=== PATIENT | female | born 1980 | race Caucasian/White ===

== ENCOUNTER → 2016-12-01 | Outpatient (CLI) | payer OTHER ==
[2015-05-28 18:37] VITALS: BP 128/73
[~2016-12-01] MED LIST: IBUP200T43 PO; OMEP20CA9 PO
--- NOTE | 2016-12-01 09:46 | RAD ---
Left knee, 3 views, 12/01/2016: History: Knee pain and swelling No fracture or dislocation is identified. There is only minimal marginal spurring at the knee joint. No joint effusion is seen. IMPRESSION: No acute left knee abnormality is detected.
== END | disposition home or self-care (01) ==
LOC: DXRADRC 07:54
PROVIDERS: ATTEND Family Medicine
DX: M25.462 Effusion, left knee (principal)
CPT/HCPCS: 73562

== ENCOUNTER → 2018-12-11 | Outpatient (CLI) | payer OTHER ==
[2015-05-28 18:37] VITALS: BP 128/73
[~2018-12-11] MED LIST changes: -IBUP200T43 PO; +IBUP200T44 PO; +OMEP20CA10 PO; -OMEP20CA9 PO
--- NOTE | 2018-12-11 17:43 | RAD ---
Examination: HIP LEFT 2V WITH PELVIS History: Hip pain Comparison/Correlation: None Findings: Frontal view of the pelvis, frontal view left hip, and frog-leg lateral view of the left hip were obtained. Sacroiliac and hip joints are symmetric. No fracture or bony destruction. Soft tissues are unremarkable. Hip joint spaces are adequate. Mild sacroiliac joint sclerosis bilaterally noted. No significant narrowing suggested. Impression: No acute process. No significant degenerative change. Electronically signed by: Lui Sauceda MD (12/11/2018 5:40 PM) [facility]
== END | disposition home or self-care (01) ==
LOC: DXRAD 14:32
PROVIDERS: ATTEND Physician Assistant Medical
DX: M53.3 Sacrococcygeal disorders, not elsewhere classified (principal)
CPT/HCPCS: 73502

== ENCOUNTER → 2019-01-25 | Outpatient (CLI) | payer OTHER ==
[2015-05-28 18:37] VITALS: BP 128/73
--- NOTE | 2019-01-25 10:28 | RAD ---
Chest, PA and Lateral: Technique: PA and lateral views of the chest were obtained. History: Cough. Comparison: 02/19/2013. Findings: The cardiomediastinal silhouette grossly appears unremarkable. Minimal prominent appearing bilateral interstitial lung markings probably mild bronchitis. IMPRESSION: 1. Minimal prominent bilateral interstitial lung markings probably mild bronchitis. Electronically signed by: Brian Frias MD (01/25/2019 10:25 AM) [facility]
== END | disposition home or self-care (01) ==
LOC: PMG 08:19
PROVIDERS: ATTEND Physician Assistant
DX: R05 Cough (principal)
CPT/HCPCS: 71046

== ENCOUNTER 2019-03-03 21:00 | Emergency (ER) | payer OTHER ==
[~2019-03-03] VITALS: Ht 167.6 cm; Wt 127.0 kg
--- NOTE | 2019-03-03 21:04 | ED.ADGEN ---
Past History Past Medical History: No Pertinent History, Diabetes, GERD, Other Past Surgical History: Tubal ligation, Other Smoking: Cigarettes Alcohol Use: None Drug Use: None Adult General Chief Complaint Chief Complaint ".. I ve been nauseated... some back pain...ache all over.. headache...".. " It started this morning... My sugar was up 235.. or so.. and I just got to feeling worse all day long... " HPI HPI Patient is a 38 year old FEMALE who presents with above hx and complaints nausea, vomiting, dysuria, fever, chills, and hyperglycemia. Patient denies any travel or specific ill contacts. Patient recently diagnosed with diabetes a known history of hypertension. Patient follows with [facility]. No history of travel. No history of trauma. Review of Systems Review of Systems Constitutional: History of fever or chills [] Eyes: Denies change in visual acuity, redness, or eye pain [] HENT: Denies nasal congestion or sore throat [] Respiratory: Denies cough or shortness of breath [] Cardiovascular: No additional information not addressed in HPI [] GI: History of abdominal pain, nausea, vomiting,/. Denies bloody stools or diarrhea [] : History of dysuria or hematuria [] Musculoskeletal: Denies back pain or joint pain [] Integument: Denies rash or skin lesions [] Neurologic: Denies headache, focal weakness or sensory changes [] Endocrine: Denies polyuria or polydipsia [] All other systems were reviewed and found to be within normal limits, except as documented in this note. Family History Family History Abuse and hypertension Current Medications Current Medications Current Medications Medications (Trade) Dose Ordered Sig/Tiffanie Start Time Stop Time Status Last Admin Dose Admin Ceftriaxone Sodium 1 gm/ Sodium Chloride 50 ml @ 100 mls/hr 1X ONCE 03/03/19 23:15 03/04/19 00:30 DC 03/03/19 23:14 100 MLS/HR Ceftriaxone Sodium (Rocephin) 1 gm STK-MED ONCE 03/03/19 23:09 03/03/19 23:09 DC Lactated Ringer's 1,000 ml @ 1,000 mls/hr Q1H 03/03/19 21:30 03/03/19 22:29 DC 03/03/19 22:11 1,000 MLS/HR Levofloxacin (Levaquin) 500 mg 1X ONCE 03/03/19 23:45 03/04/19 00:30 DC 03/04/19 00:00 500 MG Magnesium Hydroxide (Milk Of Magnesia) 2,400 mg 1X ONCE 03/03/19 23:45 03/04/19 00:31 DC 03/04/19 00:00 2,400 MG Metronidazole 100 ml @ 100 mls/hr 1X ONCE 03/03/19 23:15 03/04/19 00:31 DC 03/03/19 23:14 100 MLS/HR Morphine Sulfate (Morphine 10mg Syringe) 10 mg 1X ONCE 03/03/19 23:15 03/04/19 00:31 DC 03/03/19 23:14 10 MG Ondansetron HCl (Zofran) 8 mg 1X ONCE 03/03/19 21:30 03/03/19 21:34 DC Sodium Chloride 50 ml @ As Directed STK-MED ONCE 03/03/19 23:09 03/03/19 23:09 DC Allergies Allergies Allergies Coded Allergies Type Severity Reaction Last Updated Verified codeine Adverse Reaction Intermediate DIZZY 04/05/14 Yes aspirin Adverse Reaction Mild NAUSEA 04/05/14 Yes Physical Exam Physical Exam Constitutional: in acute distress, non-toxic appearance. [] HENT: Normocephalic, atraumatic, bilateral external ears normal, oropharynx dry, no oral exudates, nose normal. [] Eyes: PERRLA, EOMI, conjunctiva normal, no discharge. [] Neck: Normal range of motion, no tenderness, supple, no stridor. [] Cardiovascular:tachycardia Heart rate regular rhythm, no murmur [] Lungs & Thorax: Bilateral breath sounds equal apexes with scattered wheezes on auscultation [] Abdomen: Bowel sounds decreased, soft, no tenderness, no masses, no pulsatile masses. Obesel Skin: Warm, diaphoretic, no erythema, no rash. [] Back: No tenderness, mild bilateral CVA tenderness. [] Extremities: No tenderness, no cyanosis, no clubbing, ROM intact, no edema. [] Neurologic: Alert and oriented X 3, normal motor function, normal sensory function, no focal deficits noted. [] Psychologic: Affect anxious, judgement normal, mood normal. [] Current Patient Data Vital Signs Vital Signs Date Time Temp Pulse Resp B/P (MAP) Pulse Ox O2 Delivery O2 Flow Rate FiO2 03/04/19 01:15 98.5 120 18 128/69 (88) 92 Room Air Lab Results Laboratory Tests Test 03/03/19 21:40 03/03/19 22:00 03/03/19 22:06 Urine Collection Type Unknown Urine Color Yellow Urine Clarity Cloudy Urine pH 7.0 Urine Specific [place] 1.015 Urine Protein 100 mg/dl (NEG-TRACE) Urine Glucose (UA) 100 mg/dL (NEG) Urine Ketones (Stick) Trace mg/dL (NEG) Urine Blood Large (NEG) Urine Nitrite Pos (NEG) Urine Bilirubin Neg (NEG) Urine Urobilinogen Dipstick 1 mg/dL (0.2 mg/dL) Urine Leukocyte Esterase Large (NEG) Urine RBC 20-40 /HPF (0-2) Urine WBC >40 /HPF (0-4) Urine Squamous Epithelial Cells Few /LPF Urine Bacteria Many /HPF (0-FEW) Urine Opiates Screen Neg (NEG) Urine Methadone Screen Neg (NEG) Urine Barbiturates Neg (NEG) Urine Phencyclidine Screen Neg (NEG) Urine Amphetamine/Methamphetamine Neg (NEG) Urine Benzodiazepines Screen Neg (NEG) Urine Cocaine Screen Neg (NEG) Urine Cannabinoids Screen Neg (NEG) Urine Ethyl Alcohol Neg (NEG) White Blood Count 10.5 x10^3/uL (4.0-11.0) Red Blood Count 4.39 x10^6/uL (3.50-5.40) Hemoglobin 12.8 g/dL (12.0-15.5) Hematocrit 38.4 % (36.0-47.0) Mean Corpuscular Volume 87 fL (79-100) Mean Corpuscular Hemoglobin 29 pg (25-35) Mean Corpuscular Hemoglobin Concent 33 g/dL (31-37) Red Cell Distribution Width 14.8 % (11.5-14.5) H Platelet Count 268 x10^3/uL (140-400) Neutrophils (%) (Auto) 87 % (31-73) H Lymphocytes (%) (Auto) 9 % (24-48) L Monocytes (%) (Auto) 4 % (0-9) Eosinophils (%) (Auto) 0 % (0-3) Basophils (%) (Auto) 0 % (0-3) Neutrophils # (Auto) 9.1 x10^3uL (1.8-7.7) H Lymphocytes # (Auto) 0.9 x10^3/uL (1.0-4.8) L Monocytes # (Auto) 0.4 x10^3/uL (0.0-1.1) Eosinophils # (Auto) 0.0 x10^3/uL (0.0-0.7) Basophils # (Auto) 0.0 x10^3/uL (0.0-0.2) Erythrocyte Sedimentation Rate 27 (0-25) H Prothrombin Time 10.4 SEC (9.4-11.4) Prothrombin Time INR 1.0 (0.9-1.1) Activated Partial Thromboplast Time 27 SEC (23-33) Sodium Level 136 mmol/L (136-145) Potassium Level 3.8 mmol/L (3.5-5.1) Chloride Level 99 mmol/L (98-107) Carbon Dioxide Level 25 mmol/L (21-32) Anion Gap 12 (6-14) Blood Urea Nitrogen 7 mg/dL (7-20) Creatinine 0.9 mg/dL (0.6-1.0) Estimated GFR (Cockcroft-Gault) 69.3 Glucose Level 199 mg/dL (70-99) H Calcium Level 9.3 mg/dL (8.5-10.1) Magnesium Level 1.4 mg/dL (1.8-2.4) L Total Bilirubin 0.6 mg/dL (0.2-1.0) Direct Bilirubin 0.4 mg/dL (0.0-0.2) H Aspartate Amino Transferase (AST) 101 U/L (15-37) H Alanine Aminotransferase (ALT) 54 U/L (14-59) Alkaline Phosphatase 166 U/L (46-116) H Creatine Kinase 32 U/L (26-192) Troponin I Quantitative < 0.017 ng/mL (0-0.055) CN-Ees-Y-Type Natriuretic Peptide 137 pg/mL (0-124) H Total Protein 6.6 g/dL (6.4-8.2) Albumin 3.5 g/dL (3.4-5.0) Lipase 82 U/L (73-393) POC Urine HCG, Qualitative hcg negative (Negative) EKG EKG My interpretation EKG shows a sinus tachycardia hent. 2 bpm. There is some anterior lateral strain pattern.[] Radiology/Procedures Radiology/Procedures [][place] [address] IMAGING REPORT Signed PATIENT: ROSA LIZ ACCOUNT: [id number] : 1980 LOCATION: ER AGE: 38 SEX: F EXAM STATUS: REG ER ORD. PHYSICIAN: VY COLBERT MD REASON: Nausea, vomiting and fever PROCEDURE: ACUTE ABDOMEN SERIES EXAM: ABDOMEN 2 VIEWS WITH PA CHEST History: Nausea, vomiting Comparison: None available FINDINGS: The cardiomediastinal silhouette grossly appears unremarkable. Mild bibasilar lung airspace opacity likely atelectasis or infiltrates. The bowel gas pattern appears unremarkable. Feces and gas noted in the colon. IMPRESSION: 1. Mild bibasilar lung airspace opacities likely atelectasis or infiltrates. 2. Unremarkable bowel gas pattern. Electronically signed by: Brian Frias MD (03/04/2019 12:28 AM) [id number] DICTATED AND SIGNED BY: BRIAN FRIAS MD DATE: 03/04/19 002 CC: VY COLBERT MD; RAI RIOS ~ Course & Med Decision Making Course & Med Decision Making Pertinent Labs and Imaging studies reviewed. (See chart for details) Patient declines admission at this time. A she push clear fluids. Avoid high glucose intake. Take Diabetic meds as directed. Follow with Dr. Rios. Take Levaquin 500 daily. Follow up cultures. Take zofran for nausea and vomiting. [] Final Impression Final Impression 1. Myalgia[] 2. Urinary tract infection-pyelonephritis 3. Diabetes- glucose 199 4. Hypo-magnesium 1.4 5. Elevated alkaline phosphatase 166 6. Dehydration Dragon Disclaimer Dragon Disclaimer This electronic medical record was generated, in whole or in part, using a voice recognition dictation system. Dragon Disclaimer This chart was dictated in whole or in part using Voice Recognition software in a busy, high-work load, and often noisy Emergency Department environment. It may contain unintended and wholly unrecognized errors or omissions. VY COLBERT MD Mar 03, 2019 21:04
[2019-03-03] MEDS ORDERED: IV RINGERS SOLUTION,LACTATED 1,000 ML IV SCH (21:30)
[2019-03-03] MEDS ORDERED: ONDANSETRON PF 4 MG/2 ML VIAL. IV ONE (21:30)
--- NOTE | 2019-03-03 21:57 | EKG ---
[address] [address] Test Date: 2019-03-03 Test Time: 21:54:15 Pat Name: ROSA LIZ Department: Room: Gender: F [employer] Liaison: : 1980 Requested By: VY COLBERT Order Number: [id number] Reading MD: Measurements Intervals [place] Rate: 132 P: 34 NM: 132 QRS: 8 QRSD: 88 T: 9 QT: 276 QTc: 412 Interpretive Statements SINUS TACHYCARDIA QRS(T) CONTOUR ABNORMALITY CONSIDER ANTEROLATERAL MYOCARDIAL DAMAGE POSSIBLY ABNORMAL ECG RI6.01 No previous ECG available for comparison
[2019-03-03 22:28] LABS: BILIRUBIN,URINE NEG (NEG); CLARITY,URINE CLOUDY; COLOR,URINE YELLOW; GLUCOSE,URINE 100 mg/dL (NEG)
[2019-03-03 22:29] LABS: BACTERIA,URINE MANY /HPF (0-FEW); NITRITE,URINE POS (NEG); RBC,URINE 20-40 /HPF (0-2); SQUAMOUS EPITHELIAL CELL,UR FEW /LPF; UROBILINOGEN,URINE 1 mg/dL (0.2 mg/dL); WBC,URINE >40 /HPF (0-4)
[2019-03-03 22:30] LABS: AMPHETAMINE/METHAMPHETAMINE NEG (NEG); BARBITURATES NEG (NEG); BENZODIAZEPINES NEG (NEG); CANNABINOIDS NEG (NEG); COCAINE NEG (NEG); METHADONE NEG (NEG); OPIATES NEG (NEG); PHENCYCLIDINE NEG (NEG)
[2019-03-03 22:31] LABS: BASO % 0 % (0-3); EOS % 0 % (0-3); HEMATOCRIT 38.4 % (36.0-47.0); HEMOGLOBIN 12.8 g/dL (12.0-15.5); LYMPH # 0.9 x10^3/uL (1.0-4.8); LYMPH % 9 % (24-48); MEAN CORPUSCULAR HEMOGLOBIN 29 pg (25-35); MEAN CORPUSCULAR HGB CONC 33 g/dL (31-37); MEAN CORPUSCULAR VOLUME 87 fL (79-100); MONO # 0.4 x10^3/uL (0.0-1.1); MONO % 4 % (0-9); NEUT # 9.1 x10^3uL (1.8-7.7); NEUT % 87 % (31-73); PLATELET COUNT 268 x10^3/uL (140-400); RED BLOOD COUNT 4.39 x10^6/uL (3.50-5.40); RED CELL DISTRIBUTION WIDTH 14.8 % (11.5-14.5); WHITE BLOOD COUNT 10.5 x10^3/uL (4.0-11.0)
[2019-03-03 22:51] LABS: ALBUMIN 3.5 g/dL (3.4-5.0); CALCIUM 9.3 mg/dL (8.5-10.1); CREATININE 0.9 mg/dL (0.6-1.0); DIRECT BILIRUBIN 0.4 mg/dL (0.0-0.2); GFR 69.3; MAGNESIUM 1.4 mg/dL (1.8-2.4); POTASSIUM 3.8 mmol/L (3.5-5.1); TOTAL BILIRUBIN 0.6 mg/dL (0.2-1.0); TOTAL PROTEIN 6.6 g/dL (6.4-8.2)
[2019-03-03] MEDS ORDERED: IV NORMAL SALINE 50ML 50 ML ONE (23:09)
[2019-03-03] MEDS ORDERED: cefTRIAXone SODIUM 1 GM VIAL ONE (23:09)
[2019-03-03] MEDS ORDERED: MORPHINE SULFATE 10 MG/ML SYRINGE. SQ ONE (23:15)
[2019-03-03] MEDS ORDERED: OXYC1TAB15 PO (23:44)
[2019-03-03] MEDS ORDERED: LEVO500T59 PO (23:44)
[2019-03-03] MEDS ORDERED: ONDA8TAB9 PO (23:44)
[2019-03-03] MEDS ORDERED: MAGNESIUM HYDROXIDE 2,400 MG/30 ML ORAL.SUSP. PO ONE (23:45)
[2019-03-03] MEDS ORDERED: levoFLOXacin 500 MG TABLET PO ONE (23:45)
--- NOTE | 2019-03-04 00:30 | RAD ---
EXAM: ABDOMEN 2 VIEWS WITH PA CHEST History: Nausea, vomiting Comparison: None available FINDINGS: The cardiomediastinal silhouette grossly appears unremarkable. Mild bibasilar lung airspace opacity likely atelectasis or infiltrates. The bowel gas pattern appears unremarkable. Feces and gas noted in the colon. IMPRESSION: 1. Mild bibasilar lung airspace opacities likely atelectasis or infiltrates. 2. Unremarkable bowel gas pattern. Electronically signed by: Brian Frias MD (03/04/2019 12:28 AM) [id number]
[2019-03-04 01:15] VITALS: BP 128/69
[2019-03-05] MEDS ORDERED: DULO60CA6 PO (16:17)
[2019-03-05] MEDS ORDERED: CYCL-331 PO (16:17)
[2019-03-05] MEDS ORDERED: METF500T16 PO (16:17)
[2019-03-05] MEDS ORDERED: NAPR-514 PO (16:17)
[2019-03-05] MEDS ORDERED: PANT40TA5 PO (16:17)
[2019-03-05] MEDS ORDERED: TRAZ-86 PO (16:17)
[2019-03-07] MEDS ORDERED: CEFD300C PO (13:23)
== END 2019-03-04 01:20 | disposition home or self-care (01) ==
LOC: ER 21:00
DX: N12 Tubulo-interstitial nephritis, not specified as acute or chronic (principal); E11.65 Type 2 diabetes mellitus with hyperglycemia; E83.42 Hypomagnesemia; R74.8 Abnormal levels of other serum enzymes; E86.0 Dehydration; F17.210 Nicotine dependence, cigarettes, uncomplicated; K21.9 Gastro-esophageal reflux disease without esophagitis; Z98.51 Tubal ligation status; Z88.5 Allergy status to narcotic agent; Z88.6 Allergy status to analgesic agent
CPT/HCPCS: 36415; 74022; 80048; 80076; 80307; 81001; 81025; 82550; 83690; 83735; 83880; 84443; 84484; 85025; 85610; 85651; 85730; 86705; 86709; 86803; 87040; 87086; 87205; 87340; 93005; 96361; 96365; 96368; 96372; 99285; J0696; J2270; J3490; J7120

== ENCOUNTER → 2020-08-14 | Outpatient (CLI) | payer OTHER ==
[2019-03-07 11:07] VITALS: BP 144/91
[~2020-08-14] MED LIST changes: +CEFD300C PO; +CYCL-331 PO; +DULO60CA6 PO; +LEVO500T59 PO; +METF500T16 PO; +NAPR-514 PO; -OMEP20CA10 PO; +OMEP20CA16 PO; +ONDA8TAB9 PO; +OXYC1TAB15 PO; +PANT40TA6 PO; +TRAZ-125 PO
--- NOTE | 2020-08-14 17:53 | RAD ---
Study: XR RT WRIST 3VIEWS Indication: Right wrist pain. Comparison: 05/15/2013 Findings: No acute fracture. Intercarpal alignment is maintained. Normal scapholunate interval. Mild/moderate triscaphe arthrosis. Impression: 1. No acute fracture or malalignment. 2. 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 Electronically signed by: LARS MARES MD (08/14/2020 5:51 PM) [facility]
== END ==
LOC: DXRAD 17:35
PROVIDERS: ATTEND Nurse Practitioner Family
DX: M25.531 Pain in right wrist (principal)
CPT/HCPCS: 73110

== ENCOUNTER → 2020-12-04 | Outpatient (CLI) | payer OTHER ==
[2019-03-07 11:07] VITALS: BP 144/91
--- NOTE | 2020-12-04 16:12 | RAD ---
EXAM: XR FINGER(S)_RIGHT 2+VIEWS 12/04/2020 12:30 PM CLINICAL INDICATION: First digit pain, no known injury COMPARISON: None TECHNIQUE: 3 views of the right thumb FINDINGS: There is a tiny calcification at the radial aspect of the thumb interphalangeal joint, non specific. No acute fracture. Alignment is normal. Joint spaces are maintained. Bone mineralization is normal. IMPRESSION: No acute osseous abnormality. Electronically signed by: Fela Hay MD (12/04/2020 4:09 PM) [id number]
== END ==
LOC: RAD 12:25
PROVIDERS: ATTEND Physician Assistant
DX: M25.841 Other specified joint disorders, right hand (principal)
CPT/HCPCS: 73140

== ENCOUNTER → 2020-12-16 | Outpatient (CLI) | payer OTHER ==
[2019-03-07 11:07] VITALS: BP 144/91
--- NOTE | 2020-12-16 16:38 | RAD ---
Exam: Chest with right RIBS 2 views INDICATION: Fall today, injured right side TECHNIQUE: Frontal view of the chest with frontal and oblique views of the right ribs Comparisons: None FINDINGS: The cardiomediastinal silhouette and pulmonary vessels are within normal limits. The lung and pleural spaces are clear. No displaced rib fractures. IMPRESSION: 1. No acute cardiopulmonary process. 2. No displaced rib fractures. Electronically signed by: Theresa Craig MD (12/16/2020 4:36 PM) [facility]
--- NOTE | 2020-12-16 16:43 | RAD ---
EXAM: 3 views right shoulder 3 views right elbow 2 views right wrist 2 views right hand AP pelvis, AP and lateral views right hip DATE: 12/16/2020 4:00 PM INDICATION: Reason: FELL TODAY INJURED RIGHT SIDE / Spl. Instructions: / History: . COMPARISON: No Prior FINDINGS: No acute fracture or dislocation of the right shoulder or right elbow. Right AC joint is congruent. H umeral head is not high riding. No right elbow joint effusion. Soft tissue swelling about the dorsal aspect of the right elbow. Subtle osseous lenin at the volar aspect of the distal radius at the radiocarpal joint suspicious for nondisplaced fracture or old injury. Soft tissue swelling about the volar aspect of the right wrist. No evidence for acute fracture or dislocation of the right hand. Small calcification at the palmar as pect of the right ring finger PIP joint likely calcific periarthritis. No pubic symphysis or SI joint diastases. No acute fracture or dislocation of the pelvis or hips. Hip joint spaces are grossly preserved. Moderate colonic stool content is partially profiled. IMPRESSION: 1. Subtle osseous lenin at the volar aspect of the distal radius at the radiocarpal joint is suspici ous for nondisplaced fracture. 2. No definite acute fracture or dislocation of the right hand, right elbow, right shoulder or pelvi s/right hip. Electronically signed by: Farhad Camarena MD (12/16/2020 4:41 PM) [facility]
== END ==
LOC: PMG 15:49
PROVIDERS: ATTEND Nurse Practitioner Family
DX: M79.89 Other specified soft tissue disorders (principal); W19.XXXA Unspecified fall, initial encounter
CPT/HCPCS: 71101; 73030; 73080; 73100; 73120; 73502